=== PATIENT | male | born 1980 | race Caucasian/White ===

== ENCOUNTER 2019-09-15 16:12 | Observation (INO) ==
[2019-09-15] MEDS ORDERED: *HR* Heparin 5,000 UNIT/ML VIAL ONE (16:33)
[2019-09-15] MEDS ORDERED: Aspirin 81 MG TAB.CHEW ONE (16:33)
[2019-09-15] MEDS ORDERED: 0.9 % Sodium Chloride 1,000 ML ONE (16:33)
[2019-09-15] MEDS: *HR* Ticagrelor 90 MG TABLET ONE (16:37)
[2019-09-15] MEDS ORDERED: *HR* Heparin 5,000 UNIT/ML VIAL IVP ONE (16:41)
[2019-09-15] MEDS ORDERED: *HR* Heparin 5,000 UNIT/ML VIAL IVP PRN ×2 (16:41)
[2019-09-15] MEDS ORDERED: Heparin 25,000 UNIT/250 ML D5W 25,000 UNIT/250 ML IV.SOLN IVC SCH (16:45)
[2019-09-15 16:48] LABS: Basophils % 0.4 %; Eosinophils # 0.1 K/mcL (0.0-0.6); Eosinophils % 0.9 %; Hematocrit 51.3 % (37.5-50.1); Hemoglobin 18.1 g/dL (12.9-16.9); Immature Granulocytes % 0.4 % (0-4); Lymphocytes # 2.4 K/mcL (0.6-4.6); Lymphocytes % 25.8 %; Mean Corpuscular HGB Conc 35.3 g/dL (31.6-35.5); Mean Corpuscular Hemoglobin 31.6 pg (28.0-33.3); Mean Corpuscular Volume 89.5 fL (83.0-100.0); Mean Platelet Volume 10.1 fL (9.4-12.4); Monocytes # 0.8 K/mcL (0.0-1.3); Neutrophils # 5.9 K/mcL (1.6-8.9); Platelet Count 241 K/mcL (140-400); Red Blood Count 5.73 M/mcL (4.19-5.50); Red Cell Distribution Width 13.2 % (11.5-14.5); Segmented Neutrophils % 63.5 %; White Blood Count 9.4 K/mcL (4.3-11.1)
[2019-09-15 16:51] LABS: Prothrombin Time 10.8 Seconds (9.4-12.1)
[2019-09-15 16:54] LABS: Activated Partial Thrombo Time 28.6 Seconds (26.0-36.0)
[2019-09-15 17:15] LABS: BUN/Creatinine Ratio 17 (6-26); Blood Urea Nitrogen 16 mg/dL (6-20); Calcium 10.2 mg/dL (8.6-10.3); Carbon Dioxide 23 mEq/L (23-29); Chloride 103 mEq/L (98-107); Glucose 97 mg/dL (70-105); Magnesium 2.6 mg/dL (1.6-2.6); Osmolality,Calculated 283 (280-300); Potassium 4.1 mEq/L (3.5-5.1); Sodium 136 mEq/L (136-145); eGFR For African Americans > 60 (> 60); eGFR For Non-African Americans > 60 (> 60)
[2019-09-15 17:16] LABS: Troponin I < 0.03 ng/mL (< 0.04)
[2019-09-15] MEDS ORDERED: *HR* LORazepam 2 MG/ML VIAL IVP ONE (17:40)
[2019-09-15] MEDS ORDERED: *HR* Promethazine 25 MG/ML VIAL IVP PRN (17:57)
[2019-09-15] MEDS ORDERED: Naloxone 0.4 MG/ML INJ IVP PRN (17:57)
[2019-09-15] MEDS ORDERED: *HR* LORazepam 2 MG/ML VIAL IVP PRN (18:04)
[2019-09-15] MEDS: Aspirin 81 MG TAB.CHEW PO SCH (20:19)
[2019-09-15] MEDS: Nicotine 14 MG PATCH.TD24 TD SCH (22:42)
[2019-09-16 00:44] LABS: Basophils % 0.5 %; Eosinophils # 0.1 K/mcL (0.0-0.6); Eosinophils % 1.7 %; Hematocrit 47.3 % (37.5-50.1); Immature Granulocytes % 0.7 % (0-4); Lymphocytes # 2.6 K/mcL (0.6-4.6); Lymphocytes % 31.5 %; Mean Corpuscular Hemoglobin 31.8 pg (28.0-33.3); Mean Corpuscular Volume 93.3 fL (83.0-100.0); Mean Platelet Volume 10.6 fL (9.4-12.4); Monocytes # 1.1 K/mcL (0.0-1.3); Monocytes % 12.9 %; Neutrophils # 4.3 K/mcL (1.6-8.9); Platelet Count 221 K/mcL (140-400); Red Blood Count 5.07 M/mcL (4.19-5.50); Red Cell Distribution Width 13.2 % (11.5-14.5); Segmented Neutrophils % 52.7 %; White Blood Count 8.2 K/mcL (4.3-11.1)
[2019-09-16 00:46] LABS: Hemoglobin 16.1 g/dL (12.9-16.9)
[2019-09-16 00:59] LABS: Blood Urea Nitrogen 18 mg/dL (6-20); Calcium 9.4 mg/dL (8.6-10.3); Carbon Dioxide 23 mEq/L (23-29); Chloride 106 mEq/L (98-107); Glucose 90 mg/dL (70-105); Magnesium 2.4 mg/dL (1.6-2.6); Osmolality,Calculated 285 (280-300); Phosphorous 4.1 mg/dL (2.7-4.5); Potassium 3.9 mEq/L (3.5-5.1); Sodium 137 mEq/L (136-145)
[2019-09-16 01:13] LABS: BUN/Creatinine Ratio 21 (6-26); eGFR For African Americans > 60 (> 60); eGFR For Non-African Americans > 60 (> 60)
[2019-09-16 01:55] LABS: Amphetamine Screen,Urine Positive ng/mL (Cutoff=1000); Barbiturate Screen,Urine Negative ng/mL (Cutoff=200); Benzodiazepines Screen,Urine Negative ng/mL (Cutoff=200); Cannabinoid Screen,Urine Positive ng/mL (Cutoff = 50); Cocaine Screen,Urine Positive ng/mL (Cutoff= 300); Opiate Screen,Urine Negative ng/mL (Cutoff=300); Phencyclidine Screen,Urine Negative ng/mL (Cutoff=25)
[2019-09-16] MEDS: Aspirin 81 MG TAB.CHEW PO SCH (08:37)
[2019-09-16] MEDS: Nicotine 14 MG PATCH.TD24 TD SCH (08:37)
[2019-09-16 11:25] VITALS: BP 112/80
[2019-09-16] MEDS ORDERED: FLU Vac QV 19-20 (6Month+)/PF 0.5 ML SYRINGE IM ONE (14:49)
== END 2019-09-16 15:39 | disposition home or self-care (01) ==
LOC: 2NENU 16:12 → EMEROOARM 16:12 → SUATTDRO 19:09 → 2NENU 20:04
PROVIDERS: ADMIT Internal Medicine; ATTEND Internal Medicine